=== PATIENT | female | born 1955 | race Caucasian/White ===

== ENCOUNTER 2016-08-09 15:17 | Observation (INO) | payer BC, OTHER ==
--- NOTE | 2016-08-09 15:49 | ER Document Report ---
ED Cardiac - General Mode of Arrival: Ambulatory Information source: Patient TRAVEL OUTSIDE OF THE [place] IN LAST 30 DAYS: No - HPI Patient complains to provider of: Chest pain Was the onset of pain: Sudden <WILFRED ANDRADE - Last Filed: 08/09/16 21:54> <LUCASJASMYNE - Last Filed: 08/15/16 22:41> - General Stated Complaint: CHEST PRESSURE Notes: Patient is a 61-year-old female that presents to the emergency department today with complaints of chest pain which began this morning around noon. Patient states she was reading a book when her symptoms began. Patient describes the pain as a pressure and constant. Patient states her pain was relieved with nitroglycerin. Patient states the pain radiates to her neck and shoulders. Patient denies any vomiting, diarrhea, or history of clotting disorders. (WILFRED ANDRADE) - Related Data Allergies/Adverse Reactions: No Known Drug Allergies Allergy (Verified 08/09/16 20:25) Home Medications: Current Home Medications Allopurinol [Zyloprim 300 mg Tablet] 300 mg PO DAILY 08/10/16 [History] Aspirin [Adult Low Dose Aspirin EC] 81 mg PO DAILY 08/10/16 [History] Benzonatate [Tessalon Perle 100 mg Capsule] 100 mg PO TID PRN 08/10/16 [History] Bupropion HCl [Wellbutrin Sr 150 mg Tablet] 150 mg PO DAILY 08/10/16 [History] Cetirizine HCl [Zyrtec 10 mg Tablet] 10 mg PO DAILY 08/10/16 [History] Cholestyramine/Sucrose [Questran Packet] 1 packet PO QID 08/10/16 [History] Ergocalciferol (Vitamin D2) [Drisdol 50,000 unit (1.25MG) Capsule] 50,000 unit PO [id number] 08/10/16 [History] Fluticasone Propionate [Flonase Nasal [place] 50 Mcg/[place]ler 16 gm] 1 spray NASL BID 08/10/16 [History] Gentamicin Sulfate [Garamycin 0.3% Oph Soln 5 ml] 2 drop OP Q4H 08/10/16 [ History] Guaifenesin [Mucinex] 600 mg PO Q12 08/10/16 [History] Hydrochlorothiazide [Hydrodiuril 25 mg Tablet] 25 mg PO DAILY 08/10/16 [History] Levothyroxine Sodium [Synthroid] 75 mcg PO QAM 08/10/16 [History] Meclizine HCl [Antivert 25 mg Tablet] 25 mg PO TID 08/10/16 [History] Metoprolol Tartrate [Lopressor 50 mg Tablet] 50 mg PO BID 08/10/16 [History] Naproxen Sodium [Aleve] 440 mg PO Q12 08/10/16 [History] Simvastatin [Zocor 20 mg Tablet] 20 mg PO QPM 08/10/16 [History] Trazodone HCl [Desyrel 50 mg Tablet] 50 mg PO QHS 08/10/16 [History] Ubidecarenone [Coq-10] 100 mg PO DAILY 08/10/16 [History] Venlafaxine HCl ER [Effexor Xr 37.5 mg Cap.sr] 37.5 mg PO Q48H 08/10/16 [History ] Past Medical History - General Information source: Patient - Social History Smoking Status: Former Smoker Cigarette use (# per day): No Frequency of alcohol use: Social Drug Abuse: None Lives with: Family Family History: Reviewed & Not Pertinent - Medical History Medical History: Negative Past Surgical History: Reports: Hx Appendectomy, Hx Cholecystectomy <WILFRED ANDRADE - Last Filed: 08/09/16 21:54> Review of Systems - Review of Systems Constitutional: No symptoms reported EENT: No symptoms reported Cardiovascular: See HPI, Chest pain Respiratory: No symptoms reported Gastrointestinal: denies: Abdominal pain, Diarrhea, Vomiting Genitourinary: No symptoms reported Female Genitourinary: No symptoms reported Musculoskeletal: No symptoms reported Skin: No symptoms reported Hematologic/Lymphatic: No symptoms reported Neurological/Psychological: No symptoms reported -: Yes All other systems reviewed and negative <WILFRED ANDRADE - Last Filed: 08/09/16 21:54> Physical Exam - General General appearance: Appears well, Alert In distress: None - HEENT Head: Normocephalic, Atraumatic Eyes: Normal Extraocular movements intact: Yes - Respiratory Respiratory status: No respiratory distress Chest status: Nontender Breath sounds: Normal - Cardiovascular Rhythm: Regular Heart sounds: Normal auscultation Murmur: No - Abdominal Inspection: Normal Distension: No distension Bowel sounds: Normal Tenderness: Nontender - Extremities General upper extremity: Normal inspection, Normal ROM. No: Edema General lower extremity: Normal inspection, Normal ROM. No: Edema - Neurological Neuro grossly intact: Yes Cognition: Normal Orientation: AAOx4 Speech: Normal - Psychological Associated symptoms: Normal affect, Normal mood - Skin Skin Temperature: Warm Skin Moisture: Dry Skin Color: Normal <WILFRED ANDRADE - Last Filed: 08/09/16 21:54> Course - Laboratory Result Diagrams: 08/09/16 16:04 08/09/16 16:04 <LUPEWILFRED - Last Filed: 08/09/16 21:54> - Laboratory Result Diagrams: 08/09/16 16:04 08/09/16 16:04 <JASMYNE ZAVALA - Last Filed: 08/15/16 22:41> - Re-evaluation Re-evalutation: 08/09/16 17:28 I personally performed the services described in the documentation, reviewed and edited the documentation which was dictated to my scribe in my presence, and it accurately records my words and actions. Patient presents the emergency department with acute onset of substernal chest pressure started around noon when she was sitting down reading a book. Described as pressure constant improved with 3 nitroglycerin but still present on examination. She has a history of high blood pressure high cholesterol family history of heart disease no diabetes not a smoker has never had heart problems herself has never seen a oncology account specialist nor has she had a stress test or cardiac catheterization. She occasionally drinks alcohol 2 beers 3 times a week but does not describe herself as an alcoholic. She has no epigastric or right upper quadrant tenderness and her gallbladder has been removed. On ED arrival her blood pressure was low from the nitroglycerin so we gave her fluids and morphine significant improvement with the pain. She now describes a component which is a little sharp when she takes a deep breath. You do a CT PE study. 08/09/16 20:17 (JASMYNE ZAVALA) - Vital Signs Vital signs: Temp Pulse Resp BP Pulse Ox 98.0 F 70 16 98/60 L 98 08/10/16 14:03 08/10/16 14:03 08/10/16 14:03 08/10/16 14:03 08/10/16 14:03 - Laboratory Laboratory results interpreted by me: 08/09/16 08/09/16 16:04 16:04 RDW 15.6 H Sodium 136.6 L BUN 22 H Est GFR (Non-Af Amer) 53 L Critical Care Note - Critical Care Note Total time excluding time spent on procedures (mins): 45 <JASMYNE ZAVALA - Last Filed: 08/15/16 22:41> Discharge <WILFRED ANDRADE - Last Filed: 08/09/16 21:54> - Discharge Admitting Provider: Hospitalist Unit Admitted: Telemetry <JASMYNE ZAVALA - Last Filed: 08/15/16 22:41> - Discharge Clinical Impression: Chest pain Qualifiers: Chest pain type: unspecified Qualified Code(s): R07.9 - Chest pain, unspecified Disposition: ADMITTED OBSERVATION Scribe Documentation - Scribe Written by Scribe:: Diana Casas, [id number] 08/09/2016 acting as scribe for :: Lucas <WILFRED ANDRADE - Last Filed: 08/09/16 21:54>
[2016-08-09] MEDS ORDERED: FENTANYL CITRATE INJ/PF 100 MCG/2 ML AMPUL IV ONE (16:15)
[2016-08-09 16:23] LABS: ABSOLUTE EOSINOPHILS # (AUTO) 0.3 10^3/uL (0.0-0.6); ABSOLUTE LYMPHOCYTES (AUTO) 1.9 10^3/uL (0.5-4.7); ABSOLUTE MONOCYTES (AUTO) 0.6 10^3/uL (0.1-1.4); BASOPHILS % (AUTO) 0.5 % (0-2); EOSINOPHILS % (AUTO) 3.8 % (0-6); HEMATOCRIT 39.8 % (36.0-47.0); HEMOGLOBIN 12.7 g/dL (12.0-15.5); HGB HCT DIFFERENCE -1.7; LYMPHOCYTES % (AUTO) 21.5 % (13-45); MEAN CORPUSCULAR VOLUME 84 fl (80-97); MONOCYTES % (AUTO) 6.6 % (3-13); RED BLOOD COUNT 4.72 10^6/uL (3.72-5.28); RED CELL DISTRIBUTION WIDTH 15.6 % (11.5-14.0); SEGMENTED NEUTROPHILS % (AUTO) 67.6 % (42-78); WHITE BLOOD COUNT 8.9 10^3/uL (4.0-10.5)
[2016-08-09 16:28] LABS: PROTHROMBIN TIME 12.7 SEC (11.4-15.4)
[2016-08-09 16:41] LABS: ANION GAP 10 (5-19); BLOOD UREA NITROGEN 22 mg/dL (7-20); CALCIUM 8.6 mg/dL (8.4-10.2); CARBON DIOXIDE 29 mmol/L (22-30); CHLORIDE 98 mmol/L (98-107); CREATININE RESULT 1.05 mg/dL (0.52-1.25); GLUCOSE 99 mg/dL (75-110); POTASSIUM 3.6 mmol/L (3.6-5.0); SODIUM 136.6 mmol/L (137-145)
[2016-08-09 16:53] LABS: TROPONIN I < 0.012 ng/mL
[2016-08-09] MEDS ORDERED: MORPHINE SULFATE 10 MG/ML INJ IV ONE (19:57)
--- NOTE | 2016-08-09 20:07 | EKG REPORT ---
SEVERITY:- NORMAL ECG - SINUS RHYTHM : Confirmed by: Zabrina Lee 09-Aug-2016 20:06:12
--- NOTE | 2016-08-09 20:07 | EKG REPORT ---
SEVERITY:- BORDERLINE ECG - SINUS RHYTHM LVH BY VOLTAGE : Confirmed by: Zabrina Lee 09-Aug-2016 20:06:21
[2016-08-10 00:41] LABS: ADD ON TESTING BLD IN LAB ACKNOWLEDGE
[2016-08-10 00:49] LABS: ALANINE AMINOTRANSFERASE 29 U/L (9-52); ALBUMIN 4.2 g/dL (3.5-5.0); ALKALINE PHOSPHATASE 97 U/L (38-126); ASPARTATE AMINO TRANSFERASE 27 U/L (14-36); BILIRUBIN,TOTAL 0.9 mg/dL (0.2-1.3); TOTAL PROTEIN 6.8 g/dL (6.3-8.2)
[2016-08-10 04:47] LABS: CHOLESTEROL 125.26 mg/dL (0-200); Direct HDL 57 mg/dL (>40); TRIGLYCERIDES 102 mg/dL (<150)
[2016-08-10 04:59] LABS: DIRECT LDL 49 mg/dL (<100)
[2016-08-10] MEDS ORDERED: ACETAMINOPHEN 325 MG TABLET PO PRN (07:29)
[2016-08-10] MEDS ORDERED: OXYCODONE HCL IR 5 MG TABLET PO PRN (07:39)
[2016-08-10] MEDS ORDERED: PROMETHAZINE HCL INJ 25 MG/1 ML VIAL IV PRN (07:42)
[2016-08-10] MEDS ORDERED: ENOXAPARIN SODIUM INJ 40 MG/0.4 ML DISP.SYRIN SUBCUT SCH (08:00)
[2016-08-10] MEDS ORDERED: CYCLOBENZAPRINE HCL 10 MG TABLET PO ONE (08:30)
[2016-08-10] MEDS ORDERED: KETOROLAC TROMETHAMINE INJ/PF 30 MG/1 ML SDV IV ONE (08:30)
--- NOTE | 2016-08-10 08:55 | PDOC H&P ---
History of Present Illness Admission Date/PCP: 08/09/16 20:39 MITA MTZ, Patient complains of: Chest pain History of Present Illness: BRO CARMONA is a 61 year old obese female, with underlying hypertension, hyperlipidemia, hypothyroidism, gout, mild anxiety and depression without suicidal or homicidal ideation, irritable bowel syndrome, and easy bruising, who presents to the emergency room for evaluation of above complaint. Patient has been discussed with emergency room physician who evaluated the patient. While reading a book around noon on the , she developed constant pressure- like substernal chest pain, radiating to her neck and shoulders. No prior such episodes. Deep breathing seemed to make the pain more uncomfortable. No associated nausea vomiting or diaphoresis. Received a total of 3 sublingual nitroglycerin, which partially but not completely relieved her pain. Pain did eventually completely resolve, but short time ago recurred slightly. Patient initially stated she had not been performing any more physical exercise or general exertion than usual, but reminded her that 2 days ago, she had moved furniture in their home, which she normally does not do.. No previous myocardial infarction, congestive heart failure or prior cardiac workup. No history of pulmonary embolus or DVT. No recent long trip with prolonged inactivity, or unusual lower extremity swelling or tenderness. Family history remarkable for mother with early coronary artery disease. Currently resting quietly, having some mild chest discomfort. [email or web address] and are reviewed. X-ray summary results are listed below, with full report(s) reviewed. . EKG reviewed. No old EKG available for comparison. Social history/personal habits: . 2 children. Retired approximately a month ago. Lives with . Former smoker. No illicit drug use. Approximate sixpack of beer per week. Allergies/adverse reactions NKDA. Home medications have been reconciled by nursing staff in [facility]. REVIEW OF SYSTEMS: Constitutional: No fever or chills. Eyes: Wears glasses. ENT: No swallowing problems or complaints. No hearing problems or complaints. Pulmonary: No current complaints. Cardiovascular: See history and present illness. Gastrointestinal: No current complaints, including nausea or vomiting. Skin: No current complaints, including rashes. Hematologic: Easy bruising. Neurologic: No current complaints, including numbness or tingling. Musculoskeletal: Joint pain from arthritis. Psychiatric: Mild Anxiety depression; denies suicidal or homicidal ideation. Endocrine: No current complaints, including polyuria. Genitourinary: No current complaints, including dysuria. PHYSICAL EXAMINATION: 5 feet 3 inches tall. 90.9 kg. BMI 35.5 kg/m.Temperature 98.2. Pulse 65 and regular. Blood pressure 95/58. Respirations are 20 and unlabored. 95% saturation on room air. Obese otherwise well-developed female appearing approximately her stated age. Wasn't awake alert and cooperative. Appears perhaps slightly fatigued. Mildly anxious, without agitation. is present at her side; patient approves. Female floor nurse Nella present. Skin is warm and dry. No grossly obvious evidence of rash in areas of skin examined. No subcutaneous nodules palpated. ENT: Hearing grossly normal Mildly hard of hearing to normal conversation. Tongue midline on protrusion pink and slightly moist. Eyes: No scleral icterus. Pupils equal and reactive to light at 4 mm. [place] conjunctivae. Neck is supple and nontender to gentle active range of motion and palpation. Midline trachea. No palpable thyroid nodule mass enlargement or tenderness. Lymphatic: No palpable cervical or clavicular nodes. Neck and lymphatic exams limited by patient body habitus. Psychiatric: Reasonable insight into acute and chronic medical issues. Oriented to time location and why here. Lungs: Auscultation reveals clear and equal breath sounds bilaterally. No use of accessory respiratory muscles. Cardiovascular: Heart regular rate and rhythm, without gallop murmur or rub. No carotid or abdominal aortic bruits. No ankle or pedal edema. Faintly palpable dorsalis pedis pulses. Abdomen: soft, obese, nontender with positive bowel sounds. Unable to adequately evaluate abdomen for masses or organomegaly due to body habitus. Compression of neither her sternum nor upper abdomen reproduces her chest discomfort. However, deep breathing seems to, along with compression of her lateral chest aguayo. Extremities: Feet are warm and dry. No calf tenderness to compression. No grossly obvious visual evidence of calf swelling. Gentle manipulation of lower extremities fails to reveal any obvious evidence of injury or instability to knees hips or ankles. Neurologic: Moves upper extremities grossly normally. Patellar reflexes absent. Absent Babinski. Light touch is intact at feet. Dorsiflexion and plantarflexion of feet 5 / 5 and symmetric. Past Medical History Cardiac Medical History: Reports: Hyperlipidema, Hypertension Denies: Congestive Heart Failure, DVT, Myocardial Infarction, Pulmonary Embolism Pulmonary Medical History: Denies: Asthma, Chronic Obstructive Pulmonary Disease (COPD) Neurological Medical History: Denies: Hemorrhagic CVA, Ischemic CVA, Seizures Endocrine Medical History: Reports: Hypothyroidism Denies: Diabetes Mellitus Type 1, Diabetes Mellitus Type 2, Hyperthyroidism Renal/ Medical History: Reports: None GI Medical History: Reports: Other - Irritable bowel syndrome. Denies: Cirrhosis, Gastroesophageal Reflux Disease, Hepatitis, Peptic Ulcer Disease Musculoskeltal Medical History: Reports: Arthritis, Gout Skin Medical History: Reports: None Denies: Eczema, Psoriasis Psychiatric Medical History: Reports: Depression, General Anxiety Disorder Denies: Alcohol Dependency, Substance Abuse, Tobacco Dependency Hematology: Reports: Other - Easy bruising Infectious Medical History: Denies: Hepatitis B, Hepatitis C Past Surgical History Past Surgical History: Reports: Appendectomy, Cholecystectomy, Tubal Ligation Social History Information Source: Patient, Emergency Med Personnel, [facility] Records Lives with: Spouse/Significant other Smoking Status: Former Smoker Frequency of Alcohol Use: Social Hx Recreational Drug Use: No Drugs: None Hx Prescription Drug Abuse: No - Advance Directive Resuscitation Status: Full Code Surrogate healthcare decision maker:: Family History Family History: Reviewed & Not Pertinent Parental Family History Reviewed: Yes Children Family History Reviewed: Yes Sibling(s) Family History Reviewed.: Yes Medication/Allergy Home Medications: Allopurinol [Zyloprim 300 mg Tablet] 300 mg PO DAILY 08/09/16 Aspirin [Aspirin EC] 81 mg PO DAILY 08/09/16 Bupropion HCl [Bupropion HCl Sr] 150 mg PO DAILY 08/09/16 Fluticasone Propionate [Flonase Nasal [place] 50 Mcg/[place] 16 gm] 1 spray NASL BID 08/09/16 Hydrochlorothiazide [Hydrodiuril 25 mg Tablet] 25 mg PO DAILY 08/09/16 Levothyroxine Sodium [Synthroid 0.075 mg Tablet] 0.075 mg PO QAM 08/09/16 Metoprolol Tartrate [Lopressor 50 mg Tablet] 50 mg PO BID 08/09/16 Simvastatin [Zocor 20 mg Tablet] 20 mg PO QPM 08/09/16 Trazodone HCl [Desyrel 50 mg Tablet] 50 mg PO QHS PRN 08/09/16 Venlafaxine HCl ER [Effexor Xr 37.5 mg Cap.sr] 37.5 mg PO QHS 08/09/16 Allergies/Adverse Reactions: No Known Drug Allergies Allergy (Verified 08/09/16 20:25) Physical Exam Vital Signs: Temp Pulse Resp BP Pulse Ox 98.2 F 70 20 95/58 L 95 08/10/16 04:28 08/10/16 07:00 08/10/16 04:28 08/10/16 04:28 08/10/16 04:28 Intake & Output 08/09/16 08/10/16 08/11/16 00:59 00:59 00:59 Intake Total 0 Balance 0 Results Laboratory Results: 08/09/16 08/09/16 08/10/16 22:15 22:15 04:09 Total Bilirubin 0.9 AST 27 ALT 29 Alkaline Phosphatase 97 Total Protein 6.8 Albumin 4.2 Triglycerides 102 Cholesterol 125.26 LDL Cholesterol Direct 49 VLDL Cholesterol 20.0 HDL Cholesterol 57 TSH 1.01 08/09/16 08/10/16 22:15 04:09 Troponin I < 0.012 < 0.012 Impressions: Chest X-Ray 08/09/16 16:15 IMPRESSION: NO ACUTE RADIOGRAPHIC FINDING IN THE CHEST. Chest/Abdomen CTA 08/09/16 17:30 IMPRESSION: NORMAL CTA OF THE CHEST. NO PULMONARY EMBOLI. Assessment & Plan - Diagnosis (1) Precordial chest pain Is this a current diagnosis for this admission?: YesPlan: Likely her chest pain is musculoskeletal in origin, but given her multiple risk factors for coronary artery disease, Patient will be placed in observation bed under chest pain protocol. Patient understands to notify staff should chest pain recur. Serial troponin's . Repeat EKG. lipid panel. I have strongly urged patient to be careful getting out of bed, to avoid a fall with injury. Knee high SCDs for DVT prophylaxis. Along with subcutaneous Lovenox . Impression and plans were discussed with patient, and , both of whom concur. Time spent in evaluation and management of patient: 64 minutes. (2) Family history of early CAD Is this a current diagnosis for this admission?: Yes (3) HLD (hyperlipidemia) Qualifiers: Hyperlipidemia type: unspecified Qualified Code(s): E78.5 - Hyperlipidemia, unspecified Is this a current diagnosis for this admission?: YesPlan: Lipid panel.Resume home medications as appropriate once these have been determined and reviewed. (4) Hypothyroid Qualifiers: Hypothyroidism type: unspecified Qualified Code(s): E03.9 - Hypothyroidism, unspecified Is this a current diagnosis for this admission?: YesPlan: TSH. Resume home medications as appropriate once these have been determined and reviewed. (5) HTN (hypertension) Qualifiers: Hypertension type: essential hypertension Qualified Code(s): I10 - Essential (primary) hypertension Is this a current diagnosis for this admission?: YesPlan: Resume home medications as appropriate once these have been determined and reviewed.
[2016-08-10] MEDS ORDERED: ASPIRIN 81 MG TABLET, ENT COATED PO SCH (10:00)
[2016-08-10] MEDS ORDERED: NORMAL SALINE 1000 ML 1,000 ML IV PRN (10:09)
[2016-08-10] MEDS ORDERED: MECLIZINE HCL 25 MG TABLET PO PRN (10:10)
[2016-08-10] MEDS ORDERED: BENZONATATE 100 MG CAPSULE PO PRN (10:10)
[2016-08-10] MEDS ORDERED: (PENDING PHARMACY ID) (Bupropion Hcl [Wellbutrin Sr 150 Mg Tablet] 150 MG) PO SCH (10:15)
[2016-08-10 11:28] VITALS: BP 98/60
[2016-08-10] MEDS ORDERED: CETIRIZINE 10 MG TABLET PO ONE (11:30)
[2016-08-10] MEDS ORDERED: BUPROPION HCL 75 MG TABLET PO ONE (11:30)
[2016-08-10] MEDS ORDERED: LEVOTHYROXINE SODIUM 0.075 MG TABLET PO ONE (11:30)
[2016-08-10] MEDS ORDERED: FLUTICASONE NASAL SPRAY 50 MCG/SPRY 120 SPRAY/16 GM NASL SCH (18:00)
--- NOTE | 2016-08-10 19:42 | EKG REPORT ---
SEVERITY:- ABNORMAL ECG - SINUS RHYTHM PROBABLE LEFT ATRIAL ABNORMALITY BORDERLINE LEFT AXIS DEVIATION CONSIDER ANTERIOR INFARCT BORDERLINE ST ELEVATION, INFERIOR LEADS : Confirmed by: Zabrina Lee 10-Aug-2016 19:41:37
[2016-08-10] MEDS ORDERED: BUPROPION HCL 75 MG TABLET PO SCH (22:00)
[2016-08-10] MEDS ORDERED: TRAZODONE HCL 50 MG TABLET PO SCH (22:00)
[2016-08-11] MEDS ORDERED: LEVOTHYROXINE SODIUM 0.075 MG TABLET PO SCH (08:00)
[2016-08-11] MEDS ORDERED: CETIRIZINE 10 MG TABLET PO SCH (10:00)
[2016-08-11] MEDS ORDERED: ASPIRIN 81 MG TABLET, ENT COATED PO SCH (10:00)
== END 2016-08-10 14:32 | disposition home or self-care (01) ==
LOC: ER 15:17 → UNDOADMOB 20:39 → EH 20:39 → 4W 08-10 00:29 → EH 08-10 00:29 → 4W 08-10 07:34
PROVIDERS: ADMIT Family Medicine; ATTEND Family Medicine
PROC: 3E033GC Introduction of Other Therapeutic Substance into Peripheral Vein, Percutaneous Approach (ICD-10-PCS; principal; 2016-08-09)
PROC: 3E033GC Introduction of Other Therapeutic Substance into Peripheral Vein, Percutaneous Approach (ICD-10-PCS; 2016-08-09)
DX: R07.9 Chest pain, unspecified (principal); I10 Essential (primary) hypertension; E78.5 Hyperlipidemia, unspecified; E03.9 Hypothyroidism, unspecified; Z87.891 Personal history of nicotine dependence; Z82.49 Family history of ischemic heart disease and other diseases of the circulatory system
CPT/HCPCS: 93005 ×2; 99291; 96374; 96375; 36415 ×2; 84443; 85025; 85610; 80076; 80048; 84484 ×2; 80061; 83880; 71010; 71275; 93010 ×2; G0378; J3010; J1885; J2270; J1650; J7030

== ENCOUNTER → 2017-08-01 | Outpatient (CLI) | payer OTHER ==
[2017-08-01 12:09] LABS: ABSOLUTE EOSINOPHILS # (AUTO) 0.4 10^3/uL (0.0-0.6); ABSOLUTE LYMPHOCYTES (AUTO) 1.7 10^3/uL (0.5-4.7); ABSOLUTE MONOCYTES (AUTO) 0.5 10^3/uL (0.1-1.4); ABSOLUTE NEUT (AUTO) 5.4 10^3/uL (1.7-8.2); BASOPHILS % (AUTO) 0.6 % (0-2); EOSINOPHILS % (AUTO) 4.6 % (0-6); HEMATOCRIT 44.5 % (36.0-47.0); HEMOGLOBIN 14.2 g/dL (12.0-15.5); LYMPHOCYTES % (AUTO) 20.9 % (13-45); MEAN CORPUSCULAR HEMOGLOBIN 27.3 pg (27.0-33.4); MEAN CORPUSCULAR HGB CONC 31.9 g/dL (32.0-36.0); MEAN CORPUSCULAR VOLUME 86 fl (80-97); MONOCYTES % (AUTO) 6.5 % (3-13); PLATELET COUNT 202 10^3/uL (150-450); RED BLOOD COUNT 5.21 10^6/uL (3.72-5.28); RED CELL DISTRIBUTION WIDTH 15.2 % (11.5-14.0); SEGMENTED NEUTROPHILS % (AUTO) 67.4 % (42-78); TOTAL CELLS COUNTED % (AUTO) 100 %
[2017-08-01 13:17] LABS: CHOLESTEROL 140.95 mg/dL (0-200); DIRECT LDL 78 mg/dL (<100); TRIGLYCERIDES 116 mg/dL (<150)
== END ==
LOC: OD 10:22
PROVIDERS: ATTEND Internal Medicine
DX: I10 Essential (primary) hypertension (principal); E03.9 Hypothyroidism, unspecified; R53.83 Other fatigue; E78.5 Hyperlipidemia, unspecified
CPT/HCPCS: 36415; 80061; 83036; 84443; 85025

== ENCOUNTER → 2017-10-07 | Outpatient (CLI) | payer OTHER ==
[2017-10-07 11:27] LABS: ABSOLUTE EOSINOPHILS # (AUTO) 0.5 10^3/uL (0.0-0.6); ABSOLUTE LYMPHOCYTES (AUTO) 1.9 10^3/uL (0.5-4.7); ABSOLUTE MONOCYTES (AUTO) 0.4 10^3/uL (0.1-1.4); ABSOLUTE NEUT (AUTO) 4.4 10^3/uL (1.7-8.2); BASOPHILS % (AUTO) 0.6 % (0-2); EOSINOPHILS % (AUTO) 7.3 % (0-6); HEMATOCRIT 42.4 % (36.0-47.0); HEMOGLOBIN 13.7 g/dL (12.0-15.5); LYMPHOCYTES % (AUTO) 26.2 % (13-45); MEAN CORPUSCULAR HEMOGLOBIN 27.6 pg (27.0-33.4); MEAN CORPUSCULAR HGB CONC 32.2 g/dL (32.0-36.0); MEAN CORPUSCULAR VOLUME 86 fl (80-97); MONOCYTES % (AUTO) 6.1 % (3-13); PLATELET COUNT 187 10^3/uL (150-450); RED BLOOD COUNT 4.95 10^6/uL (3.72-5.28); RED CELL DISTRIBUTION WIDTH 15.9 % (11.5-14.0); SEGMENTED NEUTROPHILS % (AUTO) 59.8 % (42-78); TOTAL CELLS COUNTED % (AUTO) 100 %; WHITE BLOOD COUNT 7.3 10^3/uL (4.0-10.5)
[2017-10-07 11:49] LABS: ALANINE AMINOTRANSFERASE 28 U/L (9-52); ALKALINE PHOSPHATASE 93 U/L (38-126); ANION GAP 9 (5-19); ASPARTATE AMINO TRANSFERASE 29 U/L (14-36); BILIRUBIN,DIRECT 0.3 mg/dL (0.0-0.4); BILIRUBIN,TOTAL 0.4 mg/dL (0.2-1.3); BLOOD UREA NITROGEN 20 mg/dL (7-20); CALCIUM 9.9 mg/dL (8.4-10.2); CARBON DIOXIDE 34 mmol/L (22-30); CHLORIDE 98 mmol/L (98-107); CHOLESTEROL 147.42 mg/dL (0-200); GLUCOSE 113 mg/dL (75-110); SODIUM 141.2 mmol/L (137-145); TOTAL PROTEIN 6.6 g/dL (6.3-8.2); TRIGLYCERIDES 103 mg/dL (<150)
[2017-10-07 12:00] LABS: DIRECT LDL 75 mg/dL (<100)
== END ==
LOC: OD 10:36
PROVIDERS: ATTEND Internal Medicine
DX: I12.9 Hypertensive chronic kidney disease with stage 1 through stage 4 chronic kidney disease, or unspecified chronic kidney disease (principal); N18.2 Chronic kidney disease, stage 2 (mild); E03.9 Hypothyroidism, unspecified; E78.5 Hyperlipidemia, unspecified
CPT/HCPCS: 36415; 80053; 80061; 83735; 84443; 85025

== ENCOUNTER → 2018-11-05 | Outpatient (CLI) | payer OTHER ==
[2018-11-05 11:52] LABS: ABSOLUTE EOSINOPHILS # (AUTO) 0.3 10^3/uL (0.0-0.6); ABSOLUTE LYMPHOCYTES (AUTO) 1.8 10^3/uL (0.5-4.7); ABSOLUTE MONOCYTES (AUTO) 0.4 10^3/uL (0.1-1.4); ABSOLUTE NEUT (AUTO) 4.1 10^3/uL (1.7-8.2); BASOPHILS % (AUTO) 0.7 % (0-2); EOSINOPHILS % (AUTO) 5.2 % (0-6); HEMATOCRIT 40.2 % (36.0-47.0); HEMOGLOBIN 12.9 g/dL (12.0-15.5); LYMPHOCYTES % (AUTO) 26.4 % (13-45); MEAN CORPUSCULAR HEMOGLOBIN 27.8 pg (27.0-33.4); MEAN CORPUSCULAR VOLUME 87 fl (80-97); MONOCYTES % (AUTO) 6.4 % (3-13); PLATELET COUNT 205 10^3/uL (150-450); RED BLOOD COUNT 4.63 10^6/uL (3.72-5.28); RED CELL DISTRIBUTION WIDTH 15.1 % (11.5-14.0); SEGMENTED NEUTROPHILS % (AUTO) 61.3 % (42-78); TOTAL CELLS COUNTED % (AUTO) 100 %; WHITE BLOOD COUNT 6.8 10^3/uL (4.0-10.5)
[2018-11-05 12:19] LABS: ALANINE AMINOTRANSFERASE 21 U/L (9-52); ALBUMIN 3.9 g/dL (3.5-5.0); ALKALINE PHOSPHATASE 83 U/L (38-126); ANION GAP 8 (5-19); ASPARTATE AMINO TRANSFERASE 25 U/L (14-36); BILIRUBIN,DIRECT 0.3 mg/dL (0.0-0.4); BILIRUBIN,TOTAL 0.4 mg/dL (0.2-1.3); BLOOD UREA NITROGEN 24 mg/dL (7-20); CALCIUM 9.6 mg/dL (8.4-10.2); CARBON DIOXIDE 35 mmol/L (22-30); CHLORIDE 97 mmol/L (98-107); CHOLESTEROL 136.94 mg/dL (0-200); GLUCOSE 99 mg/dL (75-110); POTASSIUM 4.6 mmol/L (3.6-5.0); SODIUM 139.5 mmol/L (137-145); TOTAL PROTEIN 6.2 g/dL (6.3-8.2); TRIGLYCERIDES 81 mg/dL (<150)
[2018-11-05 12:29] LABS: DIRECT LDL 79 mg/dL (<100)
== END ==
LOC: OD 10:39
PROVIDERS: ATTEND Internal Medicine
DX: E78.5 Hyperlipidemia, unspecified (principal); R53.83 Other fatigue; E03.9 Hypothyroidism, unspecified; I10 Essential (primary) hypertension
CPT/HCPCS: 36415; 80053; 80061; 84443; 85025

== ENCOUNTER → 2020-05-10 | Outpatient (CLI) | payer OTHER ==
[2020-05-10 10:31] LABS: ABSOLUTE BASOPHILS # (AUTO) 0.1 10^3/uL (0.0-0.2); ABSOLUTE EOSINOPHILS # (AUTO) 0.8 10^3/uL (0.0-0.6); ABSOLUTE MONOCYTES (AUTO) 0.5 10^3/uL (0.1-1.4); ABSOLUTE NEUT (AUTO) 4.3 10^3/uL (1.7-8.2); BASOPHILS % (AUTO) 0.7 % (0-2); EOSINOPHILS % (AUTO) 10.5 % (0-6); HEMATOCRIT 42.2 % (36.0-47.0); HEMOGLOBIN 13.7 g/dL (12.0-15.5); LYMPHOCYTES % (AUTO) 26.1 % (13-45); MEAN CORPUSCULAR HEMOGLOBIN 27.6 pg (27.0-33.4); MEAN CORPUSCULAR HGB CONC 32.4 g/dL (32.0-36.0); MEAN CORPUSCULAR VOLUME 85 fl (80-97); MONOCYTES % (AUTO) 7.2 % (3-13); PLATELET COUNT 194 10^3/uL (150-450); RED BLOOD COUNT 4.95 10^6/uL (3.72-5.28); RED CELL DISTRIBUTION WIDTH 14.8 % (11.5-14.0); SEGMENTED NEUTROPHILS % (AUTO) 55.5 % (42-78); TOTAL CELLS COUNTED % (AUTO) 100 %; WHITE BLOOD COUNT 7.7 10^3/uL (4.0-10.5)
[2020-05-10 10:50] LABS: ALBUMIN 4.2 g/dL (3.5-5.0); ANION GAP 8 (5-19); BILIRUBIN,DIRECT 0.3 mg/dL (0.0-0.4); BILIRUBIN,TOTAL 0.7 mg/dL (0.2-1.3); BLOOD UREA NITROGEN 21 mg/dL (7-20); CARBON DIOXIDE 35 mmol/L (22-30); CHLORIDE 97 mmol/L (98-107); CHOLESTEROL 136.73 mg/dL (0-200); GLUCOSE 115 mg/dL (75-110); NEONATAL BILIRUBIN RESULT 0.4 mg/dL (0.1-1.1); POTASSIUM 4.3 mmol/L (3.6-5.0); TOTAL PROTEIN 6.6 g/dL (6.3-8.2); TRIGLYCERIDES 135 mg/dL (<150)
[2020-05-10 10:52] LABS: ALKALINE PHOSPHATASE 102 U/L (38-126); ASPARTATE AMINO TRANSFERASE 30 U/L (14-36); CALCIUM 10.2 mg/dL (8.4-10.2)
[2020-05-10 11:01] LABS: DIRECT LDL 62 mg/dL (<100)
== END ==
LOC: OD 09:22
PROVIDERS: ATTEND Internal Medicine
DX: I10 Essential (primary) hypertension (principal); E78.5 Hyperlipidemia, unspecified; E03.9 Hypothyroidism, unspecified; R53.83 Other fatigue; R25.2 Cramp and spasm
CPT/HCPCS: 36415; 80053; 80061; 83735; 84443; 85025